=== PATIENT | male | born 1995 | race Hispanic/Latino ===

== ENCOUNTER 2021-09-12 05:33 | Day surgery (SDC) | payer BC, MEDICAID ==
[2021-09-07 09:09] LABS: BASOPHILS % (AUTO) 0.7 % (0.0-5.0); EOSINOPHILS % (AUTO) 1.9 % (0.0-8.0); HEMATOCRIT 41.4 % (42-54); LYMPHOCYTES % (AUTO) 29.3 % (21.0-51.0); MEAN CORPUSCULAR HEMOGLOBIN 31.3 pg (27.0-33.0); MEAN CORPUSCULAR HGB CONC 33.6 g/dL (32.0-36.0); MEAN CORPUSCULAR VOLUME 93.2 fL (79-99); MONOCYTES % (AUTO) 5.9 % (3.0-13.0); NEUTROPHILS % (AUTO) 61.8 % (40.0-77.0); PLATELET COUNT (AUTO) 164 K/uL (130-400); RED BLOOD CELL COUNT(AUTO) 4.44 MIL/uL (4.50-6.20); RED CELL DISTRIBUTION WIDTH 13.1 % (11.0-15.5); WHITE BLOOD COUNT (AUTO) 5.4 K/uL (4.8-10.8)
[2021-09-07 09:19] LABS: CREATININE 0.8 mg/dL (0.5-1.5)
[2021-09-07 09:35] LABS: INR 1.1 (0.85-1.15); PROTHROMBIN TIME 11.9 SEC (9.6-11.6)
[2021-09-12] VITALS (8 sets, daily range): BP systolic 75–99; BP diastolic 44–59
[~2021-09-12] VITALS: Ht 147.3 cm; Wt 52.2 kg
[~2021-09-12 05:33] MED LIST: ENAL1SOL2 PO
[2021-09-12] MEDS ORDERED: 0.9%NACL 1000ML 1,000 ML IV ONE (05:58)
[2021-09-12] MEDS ORDERED: MIDAZOLAM HCL SYRUP 10 MG/5 ML 5ML BOTTLE ONE (06:59)
[2021-09-12] MEDS ORDERED: MIDAZOLAM HCL 1 MG/ML 2ML VIAL ONE (07:03)
[2021-09-12] MEDS ORDERED: PROPOFOL 10 MG/ML 20ML VIAL IV ONE (07:26)
[2021-09-12] MEDS ORDERED: FAMOTIDINE 20MG VIAL IV ONE (07:57)
[2021-09-12] MEDS ORDERED: EPHEDRINE SULFATE 50 MG/ML AMPULE ONE (08:24)
== END 2021-09-12 09:50 | disposition home or self-care (01) ==
LOC: DAH 05:33
PROVIDERS: ATTEND Student in an Organized Health Care Education/Training Program
DX: I37.1 Nonrheumatic pulmonary valve insufficiency (principal); Q21.0 Ventricular septal defect; Q90.9 Down syndrome, unspecified; Q21.1 Atrial septal defect; I45.10 Unspecified right bundle-branch block; Z98.890 Other specified postprocedural states; Z82.49 Family history of ischemic heart disease and other diseases of the circulatory system; Z79.899 Other long term (current) drug therapy; Z79.01 Long term (current) use of anticoagulants
CPT/HCPCS: 87426; 80048; 85025; 85610; 85730; 36415; 93005; 93312; 93325; J3490 ×2; J7030; J2704; A4215; A4222; A4221; A4663; A4216; A4606; A4223 ×3; 96374; J2250

== ENCOUNTER → 2022-12-05 | Outpatient (CLI) | payer MEDICAID ==
[2022-12-05 12:12] LABS: BASOPHILS # (AUTO) 0.04 K/uL (0.00-0.20); BASOPHILS % (AUTO) 0.8 % (0.0-5.0); EOSINOPHILS # (AUTO) 0.08 K/uL (0.00-0.70); EOSINOPHILS % (AUTO) 1.5 % (0.0-8.0); HEMATOCRIT 41.2 % (42-54); IMMATURE GRANULOCYTE ABSOLUTE 0.01 K/uL (0-1); LYMPHOCYTES # (AUTO) 1.6 K/uL (1.0-4.8); MEAN CORPUSCULAR HGB CONC 32.8 g/dL (32.0-36.0); MEAN CORPUSCULAR VOLUME 94.5 fL (79-99); MONOCYTES # (AUTO) 0.4 K/uL (0.1-1.0); NEUTROPHILS # (AUTO) 3.2 K/uL (1.8-7.7); NEUTROPHILS % (AUTO) 60.5 % (40.0-77.0); PLATELET COUNT (AUTO) 168 K/uL (130-400); RED BLOOD CELL COUNT(AUTO) 4.36 MIL/uL (4.50-6.20); RED CELL DISTRIBUTION WIDTH 13.4 % (11.0-15.5); WHITE BLOOD COUNT (AUTO) 5.3 K/uL (4.8-10.8)
[2022-12-05 12:21] LABS: HEMOGLOBIN A1C 5.2 % (4.0-6.0)
[2022-12-05 12:34] LABS: ALBUMIN 3.8 g/dL (3.5-5.0); BILIRUBIN,TOTAL 0.6 mg/dL (0.2-1.0); CREATININE 0.8 mg/dL (0.5-1.5); POTASSIUM 4.1 mmol/L (3.5-5.1); THYROID STIMULATING HORMONE 2.76 uIU/mL (0.36-3.74); TOTAL PROTEIN, SERUM 7.2 g/dL (6.0-8.3)
== END | disposition home or self-care (01) ==
LOC: LAB 08:39
PROVIDERS: ATTEND Student in an Organized Health Care Education/Training Program
DX: Q21.0 Ventricular septal defect (principal); Q90.9 Down syndrome, unspecified; I34.0 Nonrheumatic mitral (valve) insufficiency
CPT/HCPCS: 36415; 80053; 80061; 83036; 84443; 85025

== ENCOUNTER 2023-12-25 06:45 | Day surgery (SDC) | payer MEDICAID ==
[2023-12-23 09:46] VITALS: BP 104/72; PULSE 112; RESP 19; TEMP 99.1
[2023-12-25] VITALS (8 sets, daily range): BP systolic 86–147; BP diastolic 46–81; PULSE 73–83; RESP 13–15; TEMP 98
[~2023-12-25] VITALS: Ht 149.9 cm; Wt 54.4 kg
[2023-12-25] MEDS ORDERED: MIDAZOLAM HCL SYRUP 10 MG/5 ML 5ML BOTTLE ONE (07:28)
[2023-12-25] MEDS ORDERED: proPOFol 10 MG/ML 20ML VIAL IV ONE (07:45)
[2023-12-25] MEDS ORDERED: ketaMINE 50MG/ML SYRINGE 50 MG/ML DISP.SYRIN ONE (07:48)
--- NOTE | 2023-12-25 08:05 | NUR ---
PT WAS GIVEN 10MG VERSED PO LIQUID ABOUT 15 20 MINUTES PRIOR TO STARTING ECHO.
--- NOTE | 2023-12-25 08:10 | NUR ---
TRANSTHORACIC ECHO WAS STARTED AT THIS TIME IMMEDIATELY DID BUBBLE STUDY
--- NOTE | 2023-12-25 08:42 | NUR ---
PT FULLY AWAKE TO NORMAL STATE AND ATTEMPTING TO GET OUT OF BED. PT PULLED OFF WIRING FROM HIS BODY HOWEVER I DID TELL MOTHER TO KEEP THE SPO2 ON AT MINIMUM.
--- NOTE | 2023-12-25 09:00 | NUR ---
PT AWAKE TO NORMAL STATE PER MOTHER NAD PT HAS REMOVED BLOOD PRESSURE CUFF AND ECG LEAD
--- NOTE | 2023-12-26 11:32 | HMCSR ---
APPROVED REPORT EXAM: Two-dimensional and M-mode echocardiogram with Doppler and color Doppler. INDICATION ICD: Assess LV Function Contrast Details Indication: Rule out PFO Agent/Amount Used: Agitated Saline 2D Dimensions RVDd3.5 cmLVEF(%)59.0 (>50%)LVED Vol(simp.)71.6 mL IVSd0.7 (0.7-1.1cm)FS(%)31 %LVES Vol(simp.)25.7 mL LVDd3.6 (3.8-5.6cm)LVEF(%, simp.)64 % PWd0.7 (0.7-1.1cm)LA ESV INDEX (4CH)12.20 mL/m2 IVSs0.8 cmLA ESV INDEX (2CH)10.80 mL/m2 LVDs2.5 (2.5-4.0cm) PWs0.9 cm M-Mode Dimensions EPSS0.6 cm LA (MM)2.2 (1.6-4.0cm) Ao Root(MM)2.5 (2.0-3.7cm) Aortic Valve AoV VTI0.2 mAo Mean GR2.0 mmHgLVOT VTI0.10 m Mitral Valve MV E Gmpd412.9 cm/sDECEL Wvgl519 ms MV A Vmax33.0 cm/sP 1/2 T79 ms E/A ratio3.5MVA (PHT)2.8 cm2 MR Max PG56 mmHg TDI E/E' Spclti10.6E/E' Pfyrspw88.9 Medial E' Peak V6.60 cm/sLateral E' Peak V9.70 cm/s Medial A' Peak V5.00 cm/sLateral A' Peak V7.50 cm/s Medial E'/A'1.3Lateral E'/A' 1.3 Pulmonary Valve PV VTI0.20 mPV Mean GR3 mmHg Tricuspid Valve RAP (EST) 3 mmHgRVSP3.0 mmHg Left Ventricle Left ventricular cavity size is normal. L to R small shunt across superior portion of VSD patch, stab le since KAREN. There is normal left ventricular wall thickness. LVEF is 60-65%. E-a fusion. Right Ventricle The right ventricle is normal size. The right ventricular systolic function is normal. Atria The left atrium size is normal. Negative bubble study. No evidence of PFO by agitated saline. The rig ht atrium size is normal. Aortic Valve Aortic valve leaflets open well. No aortic regurgitation is present. There is no aortic valvular sten osis. Mitral Valve Mitral valve leaflets open well. Anterior darby valve leaflet is mildlly prolapsed. There is mild yesenia ral valve regurgitation noted. There is no mitral valve stenosis. Tricuspid Valve The tricuspid valve is normal in structure and function. There is no tricuspid valve regurgitation no sachi. Pulmonic Valve The pulmonic valve leaflets appear normal and open well. Great Vessels The aortic root is normal in size. The IVC is normal in size and collapses >50% with inspiration. Pericardium The pericardium appears normal. Other Information Quality : Fair Conclusion Left ventricular cavity size is normal. L to R small shunt across superior portion of VSD patch. LVEF is 60-65%. The right ventricle is normal size. The right ventricular systolic function is normal. The left atrium size is normal. The right atrium size is normal. Negative bubble study. No evidence of PFO by agitated saline. There is mild mitral valve regurgitation noted. The pericardium appears normal.
== END 2023-12-25 09:25 | disposition home or self-care (01) ==
LOC: DAH 06:45
PROVIDERS: ATTEND Student in an Organized Health Care Education/Training Program
DX: Q21.0 Ventricular septal defect (principal); Q90.9 Down syndrome, unspecified; I34.0 Nonrheumatic mitral (valve) insufficiency; R01.1 Cardiac murmur, unspecified; Z79.899 Other long term (current) drug therapy
CPT/HCPCS: 93306; A4620; A4215; A4657; A4222; A4221; A4663; A4216 ×2; A4606; C8925; J2704; A4223 ×3; J3490